=== PATIENT | male | born 1970 ===

== ENCOUNTER 2018-10-10 09:08 | Outpatient (CLI) | payer OTHER ==
[~2018-10-10] VITALS: Ht 157.5 cm; Wt 65.8 kg
== END 2018-10-10 09:20 | disposition home or self-care (01) ==
LOC: OFIC 805 09:08
DX: H69.90 Unspecified Eustachian tube disorder, unspecified ear (principal); H93.90 Unspecified disorder of ear, unspecified ear; H61.23 Impacted cerumen, bilateral

== ENCOUNTER 2018-11-18 11:47 | Outpatient (CLI) | payer OTHER ==
[~2018-11-18] VITALS: Ht 152.4 cm; Wt 65.8 kg
== END 2018-11-18 12:10 | disposition home or self-care (01) ==
LOC: OFIC 805 11:47
DX: H61.23 Impacted cerumen, bilateral (principal); H93.90 Unspecified disorder of ear, unspecified ear; H69.90 Unspecified Eustachian tube disorder, unspecified ear